=== PATIENT | female | born 1980 | race Caucasian/White ===

== ENCOUNTER 2023-05-23 09:30 | Outpatient (AMB) | payer OTHER, SELFPAY ==
[2023-05-23 10:15] VITALS: BP 112/70; PULSE 90; TEMP 36.7; O2SAT 95; BMI 31.5
--- NOTE | 2023-05-23 10:15 | AM.OFFWIN_ITS ---
Intake Vital Signs 05/23/23 10:15 Height 5 ft 2 in Weight 172 lb BMI 31.5 BP 112/70 Blood Pressure Location Rt brachial Position Sitting Pulse 90 Pulse Source Pulse Oximeter Temp 98.0 F Temp Source Oral Pulse Oximetry (%) 95 Oxygen Delivery Method Room Air Intake Visit Reasons: EP, sinus congestion, ear pain ([phone]) Intake Note: Pt is here today c/o sinus congestion bilateral ear itchy and S/T Patient Tobacco Use Status: Never used Tobacco Allergies ciprofloxacin [From Cipro] Adverse Reaction (Verified 05/23/23 10:16) Abdominal Pain Do you need a note to return to daycare/school/sports/work: No HPI HPI Comments History of Present Illness Details 42-year-old female presents for sinus co ngestion sore throat and ear itchiness. Concern she might have an ear infection. Denies fever PFSH Social History Patient Tobacco Use Status: Never used Tobacco Review of Systems ENT Reports nasal congestion, Reports nasal discharge and Reports sore throat Physical Exam Vital Signs: Last Vital Signs Temp 98.0 F 05/23/23 10:15 Pulse 90 05/23/23 10:15 BP 112/70 05/23/23 10:15 Pulse Ox 95 05/23/23 10:15 Oxygen Delivery Method Room Air 05/23/23 10:15 BMI result Body Mass Index 31.5 Const General: cooperative, healthy appearing, no acute distress and alert Orientation/consciousness: patient oriented x3 Limitations: no limitations HEENT Other: Mild swelling to tonsils bilaterally 1 to 2+ no exudates no erythema in the posterior pharynx. No maxillary tenderness or frontal sinus tenderness Ears with effusion bilaterally good light reflex Head: Yes normal to inspection Ears: hearing grossly normal bilaterally General nose exam: Normal external nose present Resp Effort & Inspection: normal respiratory effort and able to speak in complete sentences Cardio Rate: regular rate Skin General skin exam: no rashes or lesions noted Neuro General: patient oriented x3 Extrem General: Yes normal to inspection Results AMB Rapid Strep AMB Rapid Strep Negative Last Edit by Kelly Guzman CMA on 05/23/23 10:36 Results Reviewed Results Reviewed: Laboratory Last Values Strep Scn Rapid Clinic Negative 05/23/23 10:28 Assessment & Plan Assessment & Plan (1) URI (upper respiratory infection): Code(s): J06.9 - Acute upper respiratory infection, unspecified Qualifiers: URI type: unspecified viral URI Qualified Code(s): J06.9 - Acute upper respiratory infection, unspecified Plan: Suspect viral URI versus viral sinus infection. Recommend continued symptomatic treatment having antihistamines. If symptoms still persist patient will reach back out for re-evaluation. Discharge instructions, follow up and treatment are discussed with patient in my usual fashion. Alternatives in treatment are also discussed. The patient will return for worsening symptoms or as needed. Advised that any labs/imaging ordered will be followed up on and contact made if further treatment needed. Counseled that patient's condition may require further evaluation and/or treatment. Symptoms of concern for worsening disorder discussed in detail in my customary manner. Patient does verbalize understanding of the plan, there are no apparent barriers to communication. The patient is given the opportunity to ask questions and have them answered to his/her satisfaction Orders: Orders AMB Rapid Strep Screen Today Z13.9 - Encounter for screening, unspecified Coding Level of Care Code Est Pt Level 3 (44361) Diagnoses Viral upper respiratory tract infection J06.9 URI type: unspecified viral URI
== END 2023-05-23 10:41 | disposition home or self-care (01) ==
PROVIDERS: Visit Provider Physician Assistant
DX: J02.9 Acute pharyngitis, unspecified (principal); J06.9 Acute upper respiratory infection, unspecified
CPT/HCPCS: 87880; 99051; 99213

== ENCOUNTER 2024-06-13 10:05 | Outpatient (AMB) | payer OTHER, SELFPAY ==
--- NOTE | 2024-06-13 11:12 | AM.OFFWIN_ITS ---
Intake Vital Signs 06/13/24 11:23 Height 5 ft 2 in Weight 176 lb 8 oz BMI 32.3 BP 122/80 Blood Pressure Location Lt brachial Position Sitting Pulse 103 H Pulse Source Pulse Oximeter Temp 99.4 F Temp Source Oral Pulse Oximetry (%) 98 Oxygen Delivery Method Room Air Intake Visit Reasons: EP Flu symptoms, cough (exposed to flu) Intake Note: Patient here for crackling in chest and cough that has been present since Thursday night. Patient Tobacco Use Status: Never used Tobacco Allergies ciprofloxacin [From Cipro] Adverse Reaction (Verified 06/13/24 11:24) Abdominal Pain Do you need a note to return to daycare/school/sports/work: No HPI HPI Comments History of Present Illness Details History - The patient is a 44-year-old female pr esenting with symptoms suggestive of Influenza A. - The patient's middle son tested positi ve for Influenza A on , and the patient began experiencing typical influenza symptoms, including a severe cough and fever of 101.8?F, the following day. - She took a home test which yielded a n egative result on home testing for the flu, there are similar symptoms in other family members. - The patient's symptoms, beyond fever a nd cough, include wheezing, head congestion, and feelings of fullness and itchiness in the ears, suggesting an onset of ear infection as this is typically how she feels when she has one. - The patient has been managing symptoms with ibuprofen, Theraflu, and Mucinex without significant symptom relief and her PCP specifically advised against the use of Tamiflu due to her asplenia. - Noteworthy is the absence of a history of asthma or COPD, and family members including the children are also symptomatic and were managed with Tamiflu. Physical Exam General: Cooperative, healthy appearing, comfortable and no acute distress Orientation/consciousness: Patient oriented x3 Limitations: No limitations Head: Normal to inspection Ears: Hearing grossly normal bilaterally, external ears normal, and left TM's normal. Right TM sliver of purulence noted. Nose: Normal external nose present, Normal nares present and No nasal discharge present Face and sinus: Normal facial exam and Yes sinuses slightly tender Mouth: Normal oral and palatal mucosa present and moist mucous membranes Throat: Yes tonsils normal, Yes uvula midline. Posterior oropharynx erythema Eyes: Appearance normal, both eyes and all related structures Neck: Normal visual inspection Respiratory: Clear to auscultation bilaterally. Normal respiratory effort, able to speak in complete sentences, Actively coughing, no respiratory distress, not tachypneic, no tripod positioning and no use of accessory muscles Cardiovascular: Regular rate and rhythm. Normal S1 and S2. Skin: No rashes or lesions noted Neuro: Patient oriented x3 Extremities: Normal to inspection and Yes no clubbing, cyanosis or edema PFSH Social History Patient Tobacco Use Status: Never used Tobacco Review of Systems Const All systems reviewed & are unremarkable except as noted in HPI and below Physical Exam Vital Signs: Last Vital Signs Temp 99.4 F 06/13/24 11:23 Pulse 103 H 06/13/24 11:23 BP 122/80 06/13/24 11:23 Pulse Ox 98 06/13/24 11:23 Oxygen Delivery Method Room Air 06/13/24 11:23 BMI result Body Mass Index 32.3 Assessment & Plan Assessment & Plan (1) URI, acute: Code(s): J06.9 - Acute upper respiratory infection, unspecified Plan: VSS other than heart rate slightly elevated likely due to fever. Initiated amoxicillin therapy for left ear Acute Otitis Media, with a planned duration of seven days. Collected specimens for Influenza, COVID-19, and RSV testing; results anticipated shortly. The patient was counseled against Tamiflu, taking into account her history, and advised to continue symptom management with ibuprofen and OTC remedies previously used. Tessalon Perles were recommended for persistent cough relief, particularly during sleep. Further actions will depend on the upcoming laboratory results, emphasizing rest and hydration at home while monitoring symptom progression. Patient was informed and verbally consented to the use of an ambient scribe for clinic note documentation during this visit (2) Otitis media: Code(s): H66.90 - Otitis media, unspecified, unspecified ear Qualifiers: Otitis media type: suppurative Chronicity: acute Laterality: left Recurrence: non-recurrent Spontaneous tympanic membrane rupture: without spontaneous rupture Qualified Code(s): H66.002 - Acute suppurative otitis media without spontaneous rupture of ear drum, left ear Plan: as above Orders: Orders SARS-CoV2/FLU/RSV Today J06.9 - Acute upper respiratory infection, unspecified Medications: New benzonatate 200 mg PO TID PRN 14 caps 0RF cough amoxicillin 875 mg PO Q12H 14 tabs 0RF Coding Level of Care Code New Pt Level 4 (10288) Diagnoses URI, acute J06.9 Non-recurrent acute suppurative otitis media of left ear without spontaneous rupture of tympanic membrane H66.002 Otitis media type: suppurative Chronicity: acute Laterality: left Recurrence: non-recurrent Spontaneous tympanic membrane rupture: without spontaneous rupture
[2024-06-13 11:23] VITALS: BP 122/80; PULSE 103; TEMP 37.4; O2SAT 98; BMI 32.3
== END 2024-06-13 11:39 | disposition home or self-care (01) ==
PROVIDERS: Visit Provider Physician Assistant
DX: J06.9 Acute upper respiratory infection, unspecified (principal); H66.002 Acute suppurative otitis media without spontaneous rupture of ear drum, left ear

== ENCOUNTER 2024-06-13 10:05 | Outpatient (REF) | payer OTHER, SELFPAY ==
--- OUTSIDE RECORDS SUMMARY | 2024-06-13 11:39 | XMS_ITS | Patient Health Record ---
Author Organization [facility] Address [address] [address] Care Team Providers Care Flight Communications Specialist Name Role Phone Michael Hughes MD Primary Care Provider Haylie Vo Unavailable [phone] Allergies Allergen (clinical drug ingredient) Drug/Non Drug Allergy documented on EMR Reaction Allergy Type Onset Date Status ciprofloxacin Cipro upset stomach Drug Allergy Active Reason For Referral No Information Medications Medication SIG (Take, Route, Fr equency, Duration) Notes Start Date End Date Status Levothyroxine Sodium Active Sertraline HCl Activ e Social History Tobacco Use: Social History Observation Description Date Details (start date - stop date) Never Smoker NA - NA Tobacco Use/Smoking Question Answer Notes Are you a: nonsmoker Alcohol Screen Question Answer Notes Did you have a drink containing alcohol in the p ast year? No Points 0 Interpretation Negative Tobacco use other than smoking: Question Answer Notes Are you an other tobacco user? No Problems Problem Type SNOMED Code ICD Code Onset Dates Problem Status W/U Status Risk Notes Problem [id number] Plantar wart (B07.0) Active confirmed Plan Of Treatment No Information Insurance Providers Payer Name Payer Address Payer Phone Subscriber Number Group Number Insured Name Patient Relationship to Insured Coverage Start Date Coverage End Date [employer] ([employer]) [address] [place] MERAZ [id number] Spouse - patient is the spouse of the insured Medical (General) History Medical History History ICD Code Anxiety Depression thyroid Chicken pox Surgical History Surgery Date(Month/Year) splenectomy 1990
[2024-06-13 16:09] LABS: Influenza A PCR POSITIVE (Negative); Influenza B PCR NEGATIVE (Negative); Resp Syncy Virus RNA Qual PCR NEGATIVE (Negative); SARS COV2 PCR INHOUSE NEGATIVE (Negative)
== END 2024-06-13 10:06 | disposition home or self-care (01) ==
LOC: HO.LNP 10:05
PROVIDERS: Visit Provider Physician Assistant
DX: J06.9 Acute upper respiratory infection, unspecified (principal)
CPT/HCPCS: 0241U

== ENCOUNTER 2024-06-16 08:41 | Outpatient (AMB) | payer OTHER, SELFPAY ==
--- OUTSIDE RECORDS SUMMARY | 2024-06-16 08:43 | XMS_ITS | Patient Health Record ---
Author Organization [facility] [place] Address [address] [place] [address] Care Team Providers Care Grinding Mill Operator Name Role Phone Michael Hughes MD Primary Care Provider Haylie Vo Unavailable [phone] Allergies Allergen (clinical drug ingredient) Drug/Non Drug [...] Problem Status W/U Status Risk Notes Problem [id number] Plantar wart (B07.0) Active confirmed Plan Of Treatment No Information Insurance Providers Payer Name Payer Address Payer Phone Subscriber Number Group Number Insured Name Patient Relationship to Insured Coverage Start Date Coverage End Date [employer] ([employer]) [address] [place]AYNA MERAZ [id number] Spouse - patient is the spouse of the insured Medical (General) History Medical History History ICD Code Anxiety Depression thyroid Chicken pox Surgical History Surgery Date(Month/Year) splenectomy 1990
--- NOTE | 2024-06-16 08:49 | MHC.OFFWIV ---
Intake Vital Signs 06/16/24 08:51 Weight 176 lb BP 110/78 Blood Pressure Location Rt brachial Position Sitting Pulse 60 Pulse Source Pulse Oximeter Temp 98.6 F Temp Source Oral Pulse Oximetry (%) 97 Oxygen Delivery Method Room Air Intake Visit Reasons: EP flu + mon, cough, chest discomfort Intake Note: Patient here for slight chest congestion and wheezing. Patient Tobacco Use Status: Never used Tobacco Allergies ciprofloxacin [From Cipro] Adverse Reaction (Verified 06/13/24 11:24) Abdominal Pain Do you need a note to return to daycare/school/sports/work: No HPI EP flu + mon, cough, chest discomfort HPI Details This note is constructed using voice recognition software. While every effort has been made to ensure accuracy, physical aerodynamicist errors may have been included. The patient is a 44 year old female who presents to the clinic today with cough and wheeze with chest tightness for the past 2 days. She notes that she has had symptoms overall since last Thursday, was seen in the clinic on Thursday, diagnosed flu positive and otitis media on the left. She is taking her antibiotics and reports that the ear feels better, however she was never quite aware that she had an ear infection to begin with. She reports overall she is feeling much better, no fevers, chills, shortness of breath. She does report that the coughing and wheezing and chest tightness seems to be worse with activity. She has a pulse oximeter at home, and she does check her O2 sats, dropping down to 93 % with ambulation. [facility] Social History Patient Tobacco Use Status: Never used Tobacco Review of Systems Const All systems reviewed & are unremarkable except as noted in HPI and below Physical Exam Vital Signs: Last Vital Signs Temp 98.6 F 06/16/24 08:51 Pulse 60 06/16/24 08:51 BP 110/78 06/16/24 08:51 Pulse Ox 97 06/16/24 08:51 Oxygen Delivery Method Room Air 06/16/24 08:51 Const General: cooperative, healthy appearing, comfortable, no acute distress and well developed Orientation/consciousness: patient oriented x3 Limitations: no limitations HEENT Head: Yes normal to inspection Ears: hearing grossly normal bilaterally General nose exam: Normal external nose present Face and sinus: Yes normal facial exam Eyes General: appearance normal, both eyes and all related structures Neck Neck: Yes normal visual inspection and Yes full ROM Resp Effort & Inspection: normal respiratory effort and able to speak in complete sentences Auscultation: clear to auscultation bilaterally (But tight sounding) Cardio Rate: regular rate Rhythm: regular rhythm Heart sounds: normal S1 and S2 Skin General skin exam: no rashes or lesions noted Neuro General: patient oriented x3 Assessment & Plan Assessment & Plan (1) Reactive airway disease: Code(s): J45.909 - Unspecified asthma, uncomplicated Qualifiers: Asthma complication type: with acute exacerbation Asthma persistence: intermittent Asthma severity: mild Qualified Code(s): J45.21 - Mild intermittent asthma with (acute) exacerbation Plan: No indication for imaging needed based on physical examination findings. Albuterol inhaler prescribed for asthmatic type response to upper respiratory infection. Advised patient to monitor for any dyspnea at rest, back pain, increased fever, decreased energy level, increased fatigue. Educated on appropriate use of albuterol inhaler. Advised follow up as needed with worsening symptoms or failure to resolve. Plan See above for full details and plan. Medications: New albuterol sulfate 90 mcg/actuation 1 - 2 puffs inhalation QID PRN 6.7 grams 0RF Shortness Of Breath Or Wheezing Coding Level of Care Code Est Pt Level 3 (19437) Diagnoses Mild intermittent reactive airway disease with acute exacerbation J45.21 Asthma complication type: with acute exacerbation Asthma persistence: intermittent Asthma severity: mild
[2024-06-16 08:51] VITALS: BP 110/78; PULSE 60; TEMP 37; O2SAT 97
== END 2024-06-16 09:04 | disposition home or self-care (01) ==
PROVIDERS: Visit Provider Registered Nurse
DX: J45.21 Mild intermittent asthma with (acute) exacerbation (principal)